=== PATIENT | female | born 1935 | race Caucasian/White ===

== ENCOUNTER 2021-04-04 10:53 | Outpatient (REF) | payer MEDICARE, SELFPAY ==
[2021-04-04 11:36] LABS: Alanine Aminotransferase 22 U/L (0-31); Albumin Level 4.1 g/dL (3.5-5.0); Alkaline Phosphatase 75 U/L (39-117); Aspartate Amino Transferase 26 U/L (5-31); Bilirubin Direct 0.2 mg/dL (0.0-0.5); Bilirubin Total 0.6 mg/dL (0.0-1.0); Cholesterol 155 mg/dL; HDL Cholesterol 78 mg/dL; LDL Cholesterol Calculated 69 mg/dl; Total Protein 6.5 g/dL (6.5-8.0); Triglycerides 41 mg/dL
== END 2021-04-04 10:54 | disposition home or self-care (01) ==
LOC: HO.LNP 10:53
PROVIDERS: Visit Provider Internal Medicine
DX: I70.90 Unspecified atherosclerosis (principal)
CPT/HCPCS: 80061; 80076

== ENCOUNTER 2021-05-28 10:33 | Outpatient (REF) | payer MEDICARE, SELFPAY ==
[2021-05-28 10:51] LABS: MANUAL DIFF FLAG NO
[2021-05-28 11:15] LABS: Basophils Percent Auto 0.6 % (0-2); Eosinophils Absolute Auto 0.5 X10*3/uL (0.0-0.4); Eosinophils Percent Auto 8.9 % (0-4); Hematocrit 40.3 % (37-47); Imm Gran Abs Auto 0.01 X10*3/uL (0.00-0.03); Imm Gran Pct Auto 0.2 % (0.0-0.4); Lymphocytes Absolute Auto 1.8 X10*3/uL (1.2-4.9); Lymphocytes Percent Auto 35.4 % (20-40); Mean Corpuscular HGB Conc 32.3 g/dl (31.0-35.0); Mean Corpuscular Volume 102.3 fL (80-98); Mean Platelet Volume 11.3 fL (9.4-12.3); Monocytes Absolute Auto 0.5 X10*3/uL (0.1-1.2); Monocytes Percent Auto 8.7 % (2-11); Neutrophils Absolute Auto 2.4 X10*3/uL (2.0-8.3); Neutrophils Percent Auto 46.2 % (45-73); Platelet Count 228 X10*3/uL (160-400); Red Blood Count 3.94 X10*6/uL (4.20-5.50); Red Cell Distribution Width 13.2 % (11.0-16.0); White Blood Count 5.2 X10*3/uL (4.8-10.8)
[2021-05-28 11:20] LABS: Glucose Urine UA NEG (NEG); Leukocyte Esterase Urine 1+ (NEG); Nitrite Urine NEG (NEG); PH 7.5 (5.0-8.0); Urine Blood NEG (NEG); Urine Ketones NEG (NEG); Urine Protein NEG (NEG-TRACE)
[2021-05-28 11:22] LABS: Appearance Urine CLEAR; Color Urine YELLOW
[2021-05-28 11:26] LABS: Estimated Average Glucose 105 mg/dL; Hemoglobin A1c % 5.3 %
[2021-05-28 11:29] LABS: RBC Urine 0 /HPF (0); Renal Epithelial Cells Urine TRACE /LPF; Squamous Epithelial Cell Urine TRACE /LPF
[2021-05-28 11:55] LABS: Alanine Aminotransferase 13 U/L (0-31); Albumin Level 3.9 g/dL (3.5-5.0); Alkaline Phosphatase 79 U/L (39-117); Anion Gap 12 (12-20); Aspartate Amino Transferase 20 U/L (5-31); Bilirubin Total 0.4 mg/dL (0.0-1.0); Blood Urea Nitrogen 11 mg/dL (9-16); Calcium 9.2 mg/dL (8.4-10.2); Carbon Dioxide 29 mmol/L (22-29); Chloride 110 mmol/L (96-108); Cholesterol 146 mg/dL; Estimated Glomerular Filt Rate > 60; Glucose Fasting 87 mg/dL (60-99); HDL Cholesterol 62 mg/dL; LDL Cholesterol Calculated 75 mg/dl; Potassium 4.3 mmol/L (3.3-5.1); Sodium 147 mmol/L (135-145); Total Protein 6.4 g/dL (6.5-8.0); Triglycerides 46 mg/dL
[2021-05-28 12:00] LABS: Reflex LDLD? No
[2021-05-28 12:17] LABS: Vitamin D 25-OH Total 43.4 ng/mL (>30)
[2021-05-28 12:36] LABS: Creatinine Urine 51.68 mg/dL; Microalbum/Creatinine Ratio Ur 11.6 ug/mg cr
== END 2021-05-28 10:34 | disposition home or self-care (01) ==
LOC: HO.LNP 10:33
PROVIDERS: PCP Internal Medicine; Visit Provider Internal Medicine
DX: R73.03 Prediabetes (principal); I10 Essential (primary) hypertension; I70.90 Unspecified atherosclerosis; M81.0 Age-related osteoporosis without current pathological fracture; D72.820 Lymphocytosis (symptomatic)
CPT/HCPCS: 80053; 80061; 81001; 81003; 82043; 82306; 83036; 85025

== ENCOUNTER 2021-11-25 10:18 | Outpatient (REF) | payer MEDICARE, SELFPAY ==
[2021-11-25 10:48] LABS: Appearance Urine CLEAR; Color Urine YELLOW; Glucose Urine UA NEG (NEG); Leukocyte Esterase Urine 1+ (NEG); Nitrite Urine NEG (NEG); Urine Blood NEG (NEG); Urine Ketones NEG (NEG); Urine Protein NEG (NEG-TRACE)
[2021-11-25 10:52] LABS: Alanine Aminotransferase 16 U/L (0-31); Albumin Level 3.9 g/dL (3.5-5.0); Alkaline Phosphatase 74 U/L (39-117); Aspartate Amino Transferase 19 U/L (5-31); Bilirubin Direct 0.2 mg/dL (0.0-0.5); Bilirubin Total 0.6 mg/dL (0.0-1.0); Cholesterol 173 mg/dL; HDL Cholesterol 66 mg/dL; LDL Cholesterol Calculated 92 mg/dl; Total Protein 6.6 g/dL (6.5-8.0); Triglycerides 79 mg/dL
[2021-11-25 11:01] LABS: Reflex LDLD? No
[2021-11-25 11:07] LABS: Squamous Epithelial Cell Urine TRACE /LPF
[2021-11-25 11:08] LABS: Bacteria Urine TRACE /LPF; RBC Urine 0-2 /HPF (0); Renal Epithelial Cells Urine TRACE /LPF
[2021-11-25 11:29] LABS: Creatinine Urine 71.61 mg/dL; Microalbum/Creatinine Ratio Ur 16.7 ug/mg cr
== END 2021-11-25 10:19 | disposition home or self-care (01) ==
LOC: HO.LNP 10:18
PROVIDERS: Visit Provider Internal Medicine
DX: N39.0 Urinary tract infection, site not specified (principal); I70.90 Unspecified atherosclerosis; R73.03 Prediabetes
CPT/HCPCS: 80061; 80076; 81001; 82043; 87086; 87088; 87186

== ENCOUNTER 2022-06-03 12:17 | Outpatient (REF) | payer MEDICARE, SELFPAY ==
[2022-06-03 12:22] LABS: MANUAL DIFF FLAG NO
[2022-06-03 12:26] LABS: Basophils Percent Auto 0.6 % (0-2); Eosinophils Absolute Auto 0.3 X10*3/uL (0.0-0.4); Eosinophils Percent Auto 6.4 % (0-4); Hematocrit 40.8 % (37.0-47.0); Hemoglobin 13.4 g/dl (12.0-16.0); Imm Gran Abs Auto 0.01 X10*3/uL (0.00-0.03); Imm Gran Pct Auto 0.2 % (0.0-0.4); Lymphocytes Absolute Auto 2.1 X10*3/uL (1.2-4.9); Lymphocytes Percent Auto 41.9 % (20-40); Mean Corpuscular HGB Conc 32.8 g/dl (31.0-35.0); Mean Corpuscular Hemoglobin 33.3 pg (27.0-33.0); Mean Corpuscular Volume 101.5 fL (80.0-98.0); Mean Platelet Volume 11.7 fL (9.4-12.3); Monocytes Absolute Auto 0.5 X10*3/uL (0.1-1.2); Monocytes Percent Auto 9.6 % (2-11); Neutrophils Absolute Auto 2.1 x10*3/uL (2.0-8.3); Neutrophils Percent Auto 41.3 % (45-73); Platelet Count 214 X10*3/uL (160-400); Red Blood Count 4.02 X10*6/uL (4.20-5.50); Red Cell Distribution Width 13.2 % (11.0-16.0)
[2022-06-03 12:35] LABS: Appearance Urine CLEAR; Color Urine YELLOW; Glucose Urine UA NEG (NEG); Leukocyte Esterase Urine TRACE (NEG); Nitrite Urine NEG (NEG); Specific Gravity - Urine 1.015 (1.005-1.025); Urine Blood TRACE (NEG); Urine Ketones NEG (NEG); Urine Protein NEG (NEG-TRACE)
[2022-06-03 12:53] LABS: RBC Urine 0-2 /HPF (0); WBC Urine 0 /HPF (0-4)
[2022-06-03 12:54] LABS: Alanine Aminotransferase 18 U/L (0-31); Albumin Level 4.1 g/dL (3.5-5.0); Alkaline Phosphatase 73 U/L (39-117); Anion Gap 12 (12-20); Aspartate Amino Transferase 23 U/L (5-31); Bilirubin Total 0.5 mg/dL (0.0-1.0); Blood Urea Nitrogen 13 mg/dL (9-16); Calcium 9.4 mg/dL (8.4-10.2); Carbon Dioxide 27 mmol/L (22-29); Chloride 109 mmol/L (96-108); Cholesterol 162 mg/dL; Estimated Glomerular Filt Rate > 60; Glucose Fasting 97 mg/dL (60-99); HDL Cholesterol 66 mg/dL; LDL Cholesterol Calculated 85 mg/dl; Potassium 4.6 mmol/L (3.3-5.1); Sodium 143 mmol/L (135-145); Total Protein 6.8 g/dL (6.5-8.0); Triglycerides 55 mg/dL
[2022-06-03 13:46] LABS: Estimated Average Glucose 105 mg/dL; Hemoglobin A1c % 5.3 %
[2022-06-03 14:09] LABS: Creatinine Urine 63.76 mg/dL; Microalbum/Creatinine Ratio Ur 12.5 ug/mg cr
== END 2022-06-03 12:18 | disposition home or self-care (01) ==
LOC: HO.LNP 12:17
PROVIDERS: PCP Internal Medicine; Visit Provider Internal Medicine
DX: R73.03 Prediabetes (principal); M35.3 Polymyalgia rheumatica; I10 Essential (primary) hypertension; D72.820 Lymphocytosis (symptomatic); I70.90 Unspecified atherosclerosis
CPT/HCPCS: 80053; 80061; 81001; 82043; 83036; 85025

== ENCOUNTER 2022-12-12 10:25 | Outpatient (REF) | payer MEDICARE, SELFPAY ==
[2022-12-12 11:11] LABS: Estimated Average Glucose 108 mg/dL; Hemoglobin A1c % 5.4 %
[2022-12-12 11:48] LABS: Alanine Aminotransferase 14 U/L (0-31); Alkaline Phosphatase 75 U/L (39-117); Aspartate Amino Transferase 21 U/L (5-31); Bilirubin Direct 0.2 mg/dL (0.0-0.5); Bilirubin Total 0.6 mg/dL (0.0-1.0); Cholesterol 148 mg/dL; Glucose Fasting 97 mg/dL (60-99); HDL Cholesterol 62 mg/dL; LDL Cholesterol Calculated 73 mg/dl; Total Protein 6.5 g/dL (6.5-8.0); Triglycerides 66 mg/dL
[2022-12-12 13:26] LABS: Reflex LDLD? No
== END 2022-12-12 10:26 | disposition home or self-care (01) ==
LOC: HO.LNP 10:25
PROVIDERS: PCP Internal Medicine; Visit Provider Internal Medicine
DX: R73.03 Prediabetes (principal); I70.90 Unspecified atherosclerosis
CPT/HCPCS: 80061; 80076; 82947; 83036

== ENCOUNTER 2022-12-22 11:48 | Outpatient (REF) | payer MEDICARE, SELFPAY ==
[2022-12-22 14:37] VITALS: BMI 24.2
[2022-12-22 14:39] VITALS: BP 141/89; PULSE 67; RESP 16; TEMP 37.1; O2SAT 96
== END 2022-12-22 11:49 | disposition home or self-care (01) ==
LOC: HO.MS 11:48
PROVIDERS: PCP Internal Medicine; Visit Provider Ophthalmology
PROC: (CPT 66821; principal; 2022-12-22 13:20)
DX: H26.492 Other secondary cataract, left eye (principal)
CPT/HCPCS: 66821

== ENCOUNTER 2023-01-12 13:41 | Outpatient (REF) | payer MEDICARE, SELFPAY ==
[2023-01-12 14:05] VITALS: BMI 24.7
[2023-01-12 14:11] VITALS: BP 171/79; PULSE 68; RESP 16; TEMP 37.1; O2SAT 97
== END 2023-01-12 13:42 | disposition home or self-care (01) ==
LOC: HO.MS 13:41
PROVIDERS: PCP Internal Medicine; Visit Provider Ophthalmology
PROC: (CPT 66821; principal; 2023-01-12 15:40)
DX: H26.491 Other secondary cataract, right eye (principal)
CPT/HCPCS: 66821

== ENCOUNTER 2023-06-01 11:11 | Outpatient (REF) | payer MEDICARE, SELFPAY | END 2023-06-01 11:12 | disposition home or self-care (01) | LOC: HO.LNP 11:11 | PROVIDERS: Visit Provider Internal Medicine | DX: R73.03 Prediabetes (principal); I10 Essential (primary) hypertension; D72.820 Lymphocytosis (symptomatic); E78.00 Pure hypercholesterolemia, unspecified | CPT/HCPCS: 80053; 80061; 81001; 82043; 83036; 85025 ==

== ENCOUNTER 2024-01-07 11:06 | Outpatient (REF) | payer MEDICARE, SELFPAY ==
[2024-01-07 11:09] LABS: MANUAL DIFF FLAG NO
[2024-01-07 11:35] LABS: Basophils Percent Auto 0.6 % (0-2); Eosinophils Absolute Auto 0.2 X10*3/uL (0.0-0.4); Eosinophils Percent Auto 4.4 % (0-4); Hematocrit 42.8 % (37.0-47.0); Imm Gran Abs Auto 0.02 X10*3/uL (0.00-0.03); Imm Gran Pct Auto 0.4 % (0.0-0.4); Lymphocytes Absolute Auto 2.2 X10*3/uL (1.2-4.9); Lymphocytes Percent Auto 42.2 % (20-40); Mean Corpuscular HGB Conc 32.7 g/dl (31.0-35.0); Mean Corpuscular Hemoglobin 33.6 pg (27.0-33.0); Mean Corpuscular Volume 102.6 fL (80.0-98.0); Mean Platelet Volume 11.6 fL (9.4-12.3); Monocytes Absolute Auto 0.5 X10*3/uL (0.1-1.2); Monocytes Percent Auto 9.2 % (2-11); Neutrophils Absolute Auto 2.2 x10*3/uL (2.0-8.3); Neutrophils Percent Auto 43.2 % (45-73); Platelet Count 230 X10*3/uL (160-400); Red Blood Count 4.17 X10*6/uL (4.20-5.50); Red Cell Distribution Width 13.4 % (11.0-16.0); White Blood Count 5.2 X10*3/uL (4.8-10.8)
[2024-01-07 11:51] LABS: Alanine Aminotransferase 19 U/L (0-31); Alkaline Phosphatase 64 U/L (39-117); Anion Gap 12 (12-20); Appearance Urine Cloudy; Aspartate Amino Transferase 24 U/L (5-31); Bilirubin Total 0.5 mg/dL (0.0-1.0); Blood Urea Nitrogen 13 mg/dL (9-16); Calcium 9.7 mg/dL (8.4-10.2); Carbon Dioxide 29 mmol/L (22-29); Chloride 105 mmol/L (96-108); Cholesterol 146 mg/dL (<200); Color Urine Yellow; Estimated Glomerular Filt Rate > 60; Glucose Fasting 99 mg/dL (60-99); Glucose Urine UA Negative (Negative); HDL Cholesterol 65 mg/dL (>40); LDL Cholesterol Calculated 71 mg/dL (<100); Leukocyte Esterase Urine Small (1+) (Negative); Nitrite Urine Positive (Negative); Sodium 142 mmol/L (135-145); Triglycerides 51 mg/dL (<150); UMIC TRIGGER UACC YES; Urine Blood Negative (Negative); Urine Ketones Negative (Negative); Urine Protein Negative (Neg-Trace)
[2024-01-07 12:10] LABS: Bacteria Urine 4+ (None Seen); Hyaline Casts Urine 0-2 /LPF (0-2); RBC Urine 0-2 /HPF (0-2); Squamous Epithelial Cell Urine 0-2 /HPF (0-2); UACC Culture Trigger YES; WBC Urine 0-5 /HPF (0-5)
== END 2024-01-07 11:07 | disposition home or self-care (01) ==
LOC: HO.LNP 11:06
PROVIDERS: Visit Provider Internal Medicine
DX: R73.03 Prediabetes (principal); I10 Essential (primary) hypertension; D72.820 Lymphocytosis (symptomatic); E78.00 Pure hypercholesterolemia, unspecified
CPT/HCPCS: 80053; 80061; 81001; 85025; 87086; 87088; 87186

== ENCOUNTER 2024-06-16 10:56 | Outpatient (REF) | payer MEDICARE, SELFPAY ==
[2024-06-16 10:59] LABS: MANUAL DIFF FLAG NO
[2024-06-16 11:10] LABS: Appearance Urine Cloudy; Basophils Percent Auto 0.4 % (0-2); Color Urine Yellow; Eosinophils Absolute Auto 0.3 X10*3/uL (0.0-0.4); Eosinophils Percent Auto 5.6 % (0-4); Glucose Urine UA Negative (Negative); Hematocrit 40.1 % (37.0-47.0); Hemoglobin 13.2 g/dl (12.0-16.0); Imm Gran Abs Auto 0.01 X10*3/uL (0.00-0.03); Imm Gran Pct Auto 0.2 % (0.0-0.4); Leukocyte Esterase Urine Small (1+) (Negative); Lymphocytes Absolute Auto 1.9 X10*3/uL (1.2-4.9); Lymphocytes Percent Auto 40.5 % (20-40); Mean Corpuscular HGB Conc 32.9 g/dl (31.0-35.0); Mean Corpuscular Hemoglobin 33.8 pg (27.0-33.0); Mean Corpuscular Volume 102.6 fL (80.0-98.0); Mean Platelet Volume 11.7 fL (9.4-12.3); Monocytes Absolute Auto 0.4 X10*3/uL (0.1-1.2); Monocytes Percent Auto 8.6 % (2-11); Neutrophils Absolute Auto 2.1 x10*3/uL (2.0-8.3); Neutrophils Percent Auto 44.7 % (45-73); Nitrite Urine Positive (Negative); Platelet Count 198 X10*3/uL (160-400); Red Blood Count 3.91 X10*6/uL (4.20-5.50); Red Cell Distribution Width 13.3 % (11.0-16.0); Specific Gravity - Urine 1.015 (1.005-1.025); UMIC TRIGGER UACC YES; Urine Blood Negative (Negative); Urine Ketones Negative (Negative); Urine Protein Negative (Neg-Trace); White Blood Count 4.7 X10*3/uL (4.8-10.8)
[2024-06-16 11:20] LABS: Estimated Average Glucose 105 mg/dL; Hemoglobin A1c % 5.3 % (<6.0)
[2024-06-16 11:22] LABS: Alanine Aminotransferase 19 U/L (0-31); Albumin Level 3.9 g/dL (3.5-5.0); Alkaline Phosphatase 65 U/L (39-117); Anion Gap 12 (12-20); Aspartate Amino Transferase 23 U/L (5-31); Bilirubin Total 0.5 mg/dL (0.0-1.0); Blood Urea Nitrogen 14 mg/dL (9-16); Calcium 9.5 mg/dL (8.4-10.2); Carbon Dioxide 28 mmol/L (22-29); Chloride 108 mmol/L (96-108); Cholesterol 145 mg/dL (<200); Estimated Glomerular Filt Rate > 60; Glucose Fasting 102 mg/dL (60-99); HDL Cholesterol 63 mg/dL (>40); LDL Cholesterol Calculated 72 mg/dL (<100); Potassium 4.1 mmol/L (3.3-5.1); Sodium 144 mmol/L (135-145); Total Protein 6.7 g/dL (6.5-8.0); Triglycerides 52 mg/dL (<150)
[2024-06-16 11:25] LABS: Bacteria Urine 4+ (None Seen); Hyaline Casts Urine 0-2 /LPF (0-2); RBC Urine 0-2 /HPF (0-2); Squamous Epithelial Cell Urine 0-2 /HPF (0-2); UACC Culture Trigger YES; WBC Urine 0-5 /HPF (0-5)
[2024-06-16 11:29] LABS: Microalbum/Creatinine Ratio Ur 7.6 ug/mg cr (<30)
== END 2024-06-16 10:57 | disposition home or self-care (01) ==
LOC: HO.LNP 10:56
PROVIDERS: Visit Provider Internal Medicine
DX: R73.09 Other abnormal glucose (principal); I10 Essential (primary) hypertension; D72.820 Lymphocytosis (symptomatic); E78.00 Pure hypercholesterolemia, unspecified
CPT/HCPCS: 80053; 80061; 81001; 82043; 82570; 83036; 85025; 87086; 87088; 87186

== ENCOUNTER 2024-12-22 08:45 | Outpatient (REF) | payer MEDICARE, SELFPAY ==
[2024-12-22 11:50] LABS: Estimated Average Glucose 111 mg/dL; Hemoglobin A1C 129.4757 umol/L; Hemoglobin A1c % 5.5 % (<6.0); Total Hemoglobin (HGBA1C) 3568.0483 umol/L
[2024-12-22 11:55] LABS: Alanine Aminotransferase 28 U/L (0-31); Albumin Level 3.9 g/dL (3.5-5.0); Alkaline Phosphatase 66 U/L (39-117); Aspartate Amino Transferase 31 U/L (5-31); Bilirubin Direct 0.2 mg/dL (0.0-0.5); Bilirubin Total 0.6 mg/dL (0.0-1.0); Cholesterol 147 mg/dL (<200); Glucose Fasting 94 mg/dL (60-99); HDL Cholesterol 71 mg/dL (>40); LDL Cholesterol Calculated 65 mg/dL (<100); Total Protein 7.2 g/dL (6.5-8.0); Triglycerides 56 mg/dL (<150)
[2024-12-22 11:56] LABS: Reflex LDLD? No
--- OUTSIDE RECORDS SUMMARY | 2024-12-22 13:34 | XMS_ITS | Data Portability ---
Author Organization [place] - [facility], Allergy Address [address] [place] [phone] Care Team Providers Care Principal Systems Architect Name Role Phone ADRIAN SAEZ Primary Care Provider Assessment Encounter Date Assessment Date Assessment LastModified by Organization Details LastModified Time 10/05/2024 10/05/2024 89 year old female presents to the office for ear cleaning. Ears were meticulously cleaned bilaterally today with fine pics. Patient is encouraged to avoid Q-tips in her ears relative to packing the wax in tighter. Yearly visits or as needed are recommended. [email or web address] Not available 10/05/2024 10:35:18 Plan of Treatment Reminders Order Date Submit Date Provider Last Modified By Organization Details Last Modified Time Details Appointments Establish ed 15 2024 10:30A M ZAFAR VERA PA-C Not available Not available Not available Lab None recorded. Referral None recorded. Procedures None recorded. Surgeries None recorded. Imaging None recorded. Medication Orders None recorded. Patient TargetsNo targets recorded. Patient InstructionsNo instructions recorded. Reason for Referral None Reported. Problems Name Problem SNOMED Code Status Onset Date Resolution Date Notes Provider Name and Address Organization Details Recorded Time Cough 63076964 Active 2015 Cough; Note: Date Diagnosed : 03/24/2016 10:47 AM (R05) Not Available [facility] 4 02:46:14 Allergic rhinitis 26325079 Active 2015 Perennial allergic rhinitis; Note: Date Diagnosed : 03/24/2016 11:42 AM (J30.89) Not Available [facility] 4 02:46:12 Impacted cerumen 11548102 Active 2013 Impacted cerumen; CMS Risk: low risk CMS Treatment : new problem (to examiner) : no additiona l workup planned Not Available [facility] 4 02:46:09 Pain of right temporoma ndibular joint 43861930175 180269 Active 2016 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 Procedures Surgical History Date Name Laterality Status Provider Name and Address Organization Details Recorded Time 4 Cerumen removal without microscope bilat completed TIMBO ROSENBERG PA-C [address] [place] [address], [phone], [facility] - [facility] 10/05/2024 10:35:35 Imaging Results None recorded. Procedure Notes None recorded. Medical Equipment None Reported. Allergies Allergen ID Allergen Name Allergen Category Reaction Reaction Severity Criticality Documentation Date Start Date Code Code System Note Provider Name and Address Organization Details Recorded Time 09584 Substance with sulfonami de structure and antibacte rial mechanism of action (substanc e) medicatio n other Not available Not available 04/12/2024 99506 8003 SNOMED React ion: unkno wn, unspe cifie d;; Not Available [facility] 4 01:01:47 Medications Name Sig Start Date Stop Date Status Note LastModified by Organization Details LastModified Time paroxetin e 10 mg tablet TAKE 1 TABLET BY MOUTH EVERY DAY IN THE MORNING active Not Available Not Available No t Available atorvasta tin 20 mg tablet TAKE 1 TABLET BY MOUTH EVERY DAY active Not Available Not Available No t Available ketoconaz ole 2 % shampoo 10/05 completed Medicati on ID: [id number] B rand Name: ketocona zole Richard d Method: E-Prescr ibed Sub s Allowed: subs OK Medic ationGen ericName : ketocona zole Not Available Not Available Not Available valacyclo vir 1 gram tablet TAKE 2 TABLETS BY MOUTH 2 TIMES DAILY X1 DAY 10/05 completed Not Available Not Available Not Available levofloxa nichole 250 mg tablet TAKE 1 TABLET BY MOUTH EVERY DAY FOR 7 DAYS 10/05 completed Not Available Not Available Not Available amlodipin e 5 mg tablet TAKE 1 TABLET BY MOUTH EVERY DAY DIRECTED active Not Available Not Available No t Available peg-elect rolyte solution 420 gram oral solution 03/24 completed Medicati on ID: [id number] Du ration Value: 1 Reason: () Brand Name: peg-elec trolyte soln Sen d Method: E-Prescr ibed Sub s Allowed: subs OK Speci al Instruct ion: DIRECTED DIRECTED ORALLY 1 DAY(S) Shira Haddadic Name: peg-elec trolyte soln Not Available Not Available Not Available losartan 100 mg-hydroc hlorothia zide 25 mg tablet 01/01 completed Medicati on ID: [id number] Du ration Value: 90 Brand Name: losartan -hydroch lorothia zide Sen d Method: E-Prescr ibed Sub s Allowed: subs OK Speci al Instruct ion: TAKE 1 TABLET BY MOUTH EVERY DAY Medi cationGe nericNam e: losartan -hydroch lorothia zide Not Available Not Available Not Available imiquimod 5 % topical cream packet APPLY TO AREA AT BEDTIME THURSDAY- RID FOR 3 WEEKS (12 EVERY PER INSURANC E) 10/05 completed Not Available Not Available Not Available cephalexi n 500 mg capsule TAKE 1 CAPSULE BY MOUTH TWICE A DAY FOR 5 DAYS 10/05 completed Not Available Not Available Not Available Ventolin HFA 90 mcg/actua tion aerosol inhaler 01/01 completed Medicati on ID: [id number] D uration Value: 30 Brand Name: Ventolin HFA Send Method: E-Prescr ibed Sub s Allowed: subs OK Medic ationGen ericName : Ventolin HFA Not Available Not Available Not Available Calcium 500 + D 500 mg-5 mcg (200 unit) tablet 01/01 completed Medicati on ID: [id number] B rand Name: Calcium 500 + D Send Method: E-Prescr ibed Sub s Allowed: subs OK Medic ationGen ericName : Calcium 500 + D Not Available Not Available Not Available Breo Ellipta 200 mcg-25 mcg/dose powder for inhalatio n 10/05 completed Medicati on ID: [id number] B rand Name: Eva Ladd Send Method: E-Prescr ibed Sub s Allowed: subs OK Medic ationGen ericName : Eva Ladd Not Available Not Available Not Available Vitals Date Recorded Body height Body mass index (BMI) Body weight Provider Name and Address Organization Details Last Updated DateTime 10/05/2024 160.02 cm 24.7 kg/m2 11538.14 g Chitra Sharma [place] - [facility] 10/05/2024 10:25:52 Social History None recorded. Functional Status None recorded. Mental Status None recorded. Family History Nothing Reported. Medical History No medical history recorded. Gynecological HistoryNo gynecological history recorded. Obstetrics History GPAL:G 0 P 0 0 0 0 Past Encounters Encounter ID Performer Location Encounter Start Date Encounter Closed Date Diagnosis/Indication Diagnosis SNOMED-CT Code Diagnosis ICD10 Code Diagnosis Note [id number] BRENDEN BOWENS MD [facility] [address] [address] 10/05/2024 10:20:00 10/05/2024 10:35:33 Impacted cerumen of bilateral ears [id number] 735768 H61.23 Health Concerns Section Related Observation LastModified by Organization Detai ls LastModified Time None Recorded Concern Status LastModified by Organization Details LastModified Time None Recorded Advance Directives Directive None Recorded Payers Encounter Date Sequence Insurance Name Policy Number Policy Orozco Covered Member ID Orozco Member ID Guarantor Name 10/05/2024 1 [place] Marlyn Meyer [id number] Marlyn Meyer 10/05/2024 2 [place] [id number] Marlyn Meyer [id number] Marlyn Meyer Notes Date Note Type Note Provider Name and Address Organization Details Recorded Time 10/05/2024 text/html 89 year old female presents to the office for ear cleaning. She has been using bilateral hearing aids for the past six months. She denies otalgia or ottorhea. BRENDEN BARRETO MD [address] [place] [address], [phone], [facility] - [facility] 10/05/2024 12:34:58 OBGyn Episode No OBEpisode recorded.
== END 2024-12-22 08:46 | disposition home or self-care (01) ==
LOC: HO.LNP 08:45
PROVIDERS: Visit Provider Internal Medicine
DX: R73.09 Other abnormal glucose (principal); E78.00 Pure hypercholesterolemia, unspecified
CPT/HCPCS: 80061; 80076; 82947; 83036

== ENCOUNTER 2025-06-23 09:55 | Outpatient (REF) | payer MEDICARE, SELFPAY ==
--- OUTSIDE RECORDS SUMMARY | 2025-06-23 04:15 | XMS_ITS ---
Author Organization Elias Donovan MD Address [address] [place], [place] [phone] Care Team Providers Care User Experience Architect Name Role Phone Elias Donovan Primary Care Provider Results Component Value Reference Range Notes Complete Blood Count Auto Di ff (Not yet reviewed by provider) Interpretation: Performing Lab:[facility], [address] [place] [phone] Notes/Report: White Blood Count 4.7 4.8-10.8 X10*3/uL Red Blood Count 3.85 4.20-5.50 X10*6/uL Hemoglobin 13.0 12.0-16.0 g/dl Hematocrit 39.2 37.0-47.0 % Mean Corpuscular Volume 101.8 80.0-98.0 fL Mean Corpuscular Hemoglobin 33.8 27.0-33.0 pg Mean Corpuscular HGB Conc 33.2 31.0-35.0 g/dl Red Cell Distribution Width 13.3 11.0-16.0 % Platelet Count 200 160-400 X10*3/uL Mean Platelet Volume 11.7 9.4-12.3 fL Neutrophils Percent Auto 40.0 45-73 % Imm Gran Pct Auto 0.2 0.0-0.4 % Lymphocytes Percent Auto 44.3 20-40 % Monocytes Percent Auto 10.3 2-11 % Eosinophils Percent Auto 4.6 0-4 % Basophils Percent Auto 0.6 0-2 % NRBC Pct Auto 0.0 0.0-0.2 /100WBC Neutrophils Absolute Auto 1.9 2.0-8.3 x10*3/u L Imm Gran Abs Auto 0.01 0.00-0.03 X10*3/uL Lymphocytes Absolute Auto 2.1 1.2-4.9 X10*3/u L Monocytes Absolute Auto 0.5 0.1-1.2 X10*3/uL Eosinophils Absolute Auto 0.2 0.0-0.4 X10*3/u L Basophils Absolute Auto 0.0 0.0-0.2 X10*3/uL NRBC Abs Auto 0.000 0.0-0.012 X10*3/uL REASON FOR VISIT FASTING LABS Encounters Encounter Location Date Provider Diagnosis Elias Donovan MD [address] [place] [address] [address] [place], [place] [phone] 06/23/2025 Elias Donovan Prediabetes R73.09 ; Essential (primary) hypertension I10 ; Lymphocytosis D72.820 and Hypercholesterolemia E78.00 Assessments Encounter Date Diagnosis (ICD Code) Assessment Notes Treatment Notes Treatment Clinical Notes Section Notes 06/23/2025 Prediabetes (ICD-10 - R73.09) 06/23/2025 Essential (primary) hypertension (ICD-10 - I10) 06/23/2025 Lymphocytosis (ICD-1 0 - D72.820) 06/23/2025 Hypercholesterolemia (ICD-10 - E78.00) Plan Of Treatment Pending Test Test Name Order Date Complete Blood Count Auto Diff Comprehensive [place]. Panel Fast Lipid Panel 06/23/2025 Microalbumin, Random 06/23/2025 Hemoglobin A1c 06/23/2025 UA ClnCatch+Micro w/rflx Cult 06/23/2025 Next Appt Details Provider Name:Elias Otto ier, 07/11/2025 02:30:00 PM, [address] [place] [address], [address], [place], [place], [phone], Progress Notes * Tian AVILESOB:1935 (89 yo F)Acc No.[id number]:06/23/2025 Progress Note Patient: Marlyn YANG Provider: Ofe Donovan MD :1935 A ge:89 Y S ex:Female Date:06/23/2025 Address:[address] [place], [place] [id number] Subjective: * Chief Complaints: * 1 . FASTING LABS. * Medical History: Objective: * Vitals: Assessment: * Assessment: 1. P rediabetes - R73.09 (Primary) 2 . E ssential (primary) hypertension - I10 3 . L ymphocytosis - D72.820 4 . H ypercholesterolemia - E78.00 Plan: * Treatment: 2. E ssential (primary) hypertension L AB: Complete Blood Count Auto Diff (Collection Date & Time - 06/23/2025 08:15 AM) L AB: Comprehensive [place]. Panel Fast L AB: Lipid Panel L AB: Microalbumin, Random L AB: Hemoglobin A1c L AB: UA ClnCatch+Micro w/rflx Cult 3. L ymphocytosis L AB: Complete Blood Count Auto Diff (Collection Date & Time - 06/23/2025 08:15 AM) L AB: Comprehensive [place]. Panel Fast L AB: Lipid Panel L AB: Microalbumin, Random L AB: Hemoglobin A1c L AB: UA ClnCatch+Micro w/rflx Cult 4. H ypercholesterolemia L AB: Complete Blood Count Auto Diff (Collection Date & Time - 06/23/2025 08:15 AM) L AB: Comprehensive [place]. Panel Fast L AB: Lipid Panel L AB: Microalbumin, Random L AB: Hemoglobin A1c L AB: UA ClnCatch+Micro w/rflx Cult * Procedure Codes: 3 6415 VENIPUNCT, ROUTINE* * * The named appointment provid er may or may not be the originator of this progress note, and it is not deemed complete until electronically signed by the appointment provider. Sign off status: Pending * Provider: Ofe Donovan MD Date: 0 06/23/2025 Generated for Slava stinson/Neeru/Silverio on: 0 06/23/2025 10:10 AM EDT
[2025-06-23 09:59] LABS: MANUAL DIFF FLAG NO
[2025-06-23 10:04] LABS: Hematocrit 39.2 % (37.0-47.0); Hemoglobin 13.0 g/dl (12.0-16.0); Imm Gran Abs Auto 0.01 X10*3/uL (0.00-0.03); Imm Gran Pct Auto 0.2 % (0.0-0.4); Lymphocytes Absolute Auto 2.1 X10*3/uL (1.2-4.9); Mean Corpuscular HGB Conc 33.2 g/dl (31.0-35.0); Mean Corpuscular Hemoglobin 33.8 pg (27.0-33.0); Mean Corpuscular Volume 101.8 fL (80.0-98.0); NRBC Abs Auto 0.000 X10*3/uL (0.0-0.012); NRBC Pct Auto 0.0 /100WBC (0.0-0.2); Platelet Count 200 X10*3/uL (160-400); Red Blood Count 3.85 X10*6/uL (4.20-5.50); White Blood Count 4.7 X10*3/uL (4.8-10.8)
--- OUTSIDE RECORDS SUMMARY | 2025-06-23 10:11 | XMS_ITS | Patient Health Record ---
Author Organization [facility] Address [address] [place] [address] Care Team Providers Care Pharmacy Coordinator Name Role Phone Elias Donovan MD Primary Care Provider Yasmine Poole Unavailable [phone] Allergies Allergen (clinical drug ingredient) Drug/Non Drug Allergy documented on EMR Reaction Allergy Type Onset Date Status Substance with sulfonamide structure and antibacterial mechanism of action (substance) Sulfa Antibiotics Unknown Drug Allergy Active Reason For Referral No Information Medications Medication SIG (Take, Route, Frequency, Duration) Notes Start Date End Date Status PARoxetine HCl 10 MG TAKE 1 TABLET BY MO UT EVERY MORNING Oral; Duration: 90 Active amLODIPine Besylate 5 MG Oral; Duration: 90 Days Active Atorvastatin Calcium 20 MG Oral; Duration: 90 Days Active Social History Tobacco Use: Social History Observation Description Date Details (start date - stop date) Former Smoker NA - NA Tobacco Use/Smoking Question Answer Notes Are you a former smoker How long has it been since you last smoked? > 10 years Alcohol Screen (Audit-C) Question Answer Notes Did you have a drink contain ing alcohol in the past year? Yes How often did you have a dri nk containing alcohol in the past year? 2 to 4 times a month (2 points) How many drinks did you have on a typical day when you were drinking in the past year? 1 or 2 drinks (0 point) Points 2 Interpretation Negative Sexual History Question Answer Notes Had sex in the past 12 months (vaginal, oral, or anal)? No Section Notes: MARITAL STATUS: CHILDREN: 6 Children LIVES WITH: spouse OCCUPATION: retired NUTRITION: average diet EXERCISE: regular walking SEXUAL ACTIVITY: monogamous relationship. 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) Active confirmed Problem Benign essential hypertension (5651868) Essential hypertension, benign (401.1) Active confirmed Major Problem Urinary tract infectious disease (disorder) (02266529) Urinary tract infection, site not specified (599.0) Active confirmed Major Problem Menopausal symptom (18630623) Symptomatic menopausal or female climacteric states (627.2) Active confirmed Major Problem Postmenopausal atrophic vaginitis (08751836) Postmenopausal atrophic vaginitis (627.3) Active confirmed Major Problem Gynecological examination normal (718168177913230) Routine gynecological examination (V72.31) Active confirmed Major Problem Screening for malignant neoplasm of colon (417873220) Special screening for malignant neoplasms, colon (V76.51) Active confirmed Major Plan Of Treatment Pending Test Test Name Order Date MAMMOGRAM, SCREENING 02/10/2024 Bone Density 09/17/2015 BONE DENSITY 11/04/2018 BONE DENSITY 11/05/2020 MM Digital Mammo Screening 02/10/2024 Insurance Providers Payer Name Payer Address Payer Phone Subscriber Number Group Number Insured Name Patient Relationship to Insured Coverage Start Date Coverage End Date MEDICARE [address] KWAN ALMARAZ [id number] CRISTOFER AVILES Self - patient is the insured MEDEX [address] [place] [address] [phone] [id number] CRISTOFER AVILES Self - patient is the insured Medical (General) History Medical History History ICD Code Essential (primary) hypertension I10 Menopausal and female climacteric states N95.1 Urinary tract infection, site not specif ied N39.0 Postmenopausal atrophic vaginitis N95.2 Unspecified menopausal and perimenopausa l disorder N95.9 Surgical History Surgery Date(Month/Year) Colonoscopy Bilateral Cataract 2017 Hospitalization History Reason Date(Month/Year) 6 Vaginal Deliveries
--- OUTSIDE RECORDS SUMMARY | 2025-06-23 10:11 | XMS_ITS | Data Portability ---
Author Organization [place] - [facility], Allergy Address [address] [address] Care Team Providers Care Drawer Hardware Worker Name Role Phone ADRIAN SAEZ Primary Care Provider [phone] Assessment Encounter Date Assessment Date Assessment LastModified [...] Name and Address Organization Details Recorded Time Impacted cerumen 44889376 Active 2013 Impacted cerumen; CMS Risk: low risk CMS Treatment : new problem (to examiner) : no additiona l workup planned Not Available [facility] 4 02:46:09 Cough 82852000 Active 2015 Cough; Note: Date Diagnosed : 03/24/2016 10:47 AM (R05) Not Available [facility] 4 02:46:14 Allergic rhinitis 16634116 Active 2015 Perennial allergic rhinitis; Note: Date Diagnosed : 03/24/2016 11:42 AM (J30.89) Not Available [facility] 4 02:46:12 Impacted cerumen of bilateral ears 50224914543 94483 Active 2015 Impacted cerumen, bilateral ; Note: Date Diagnosed : 03/24/2016 10:48 AM (H61.23) Not Available [facility] 4 02:46:06 Pain of right temporoma ndibular joint 02960884079 105446 Active 2016 Arthralgi a of right temporoma ndibular joint; Note: Date Diagnosed : 07/28/2017 9:47 AM (M26.621) Not Available [facility] 4 02:46:07 Problem Notes None recorded. Procedures Surgical History Date Name Laterality Status Provider Name and Address Organization Details Recorded Time 4 Cerumen removal without microscope bilat completed TIMBO ROSENBERG PA-C [address] [place] [address], [phone], [facility] - [facility] 10/05/2024 10:35:35 Imaging Results None recorded. Procedure Notes None recorded. Medical Equipment None Reported. Allergies Allergen ID Allergen Name Allergen Category Reaction Reaction Severity Criticality Documentation Date Start Date Code Code System Note Provider Name and Address Organization Details Recorded Time 03966 Substance with sulfonami de structure and antibacte rial mechanism of action (substanc e) medicatio n other Not available Not available 04/12/2024 28356 8003 SNOMED React ion: unkno wn, unspe cifie d;; Not Available [facility] 4 01:01:47 Medications Name Sig Start Date [...] % shampoo 10/05 completed Medicati on ID: [id number] B rand Name: ketocona zole Sen d Method: E-Prescr ibed Sub s [...] oral solution 03/24 completed Medicati on ID: [id number] Du ration Value: 1 Reason: () Brand Name: peg-elec trolyte soln Sen d Method: E-Prescr ibed Sub s Allowed: subs OK Speci al Instruct ion: DIRECTED DIRECTED ORALLY 1 DAY(S) Shira Haddadic Name: peg-elec trolyte soln Not Available Not Available Not Available losartan 100 mg-hydroc hlorothia zide 25 mg tablet 01/01 completed Medicati on ID: [id number] Du ration Value: 90 Brand Name: losartan -hydroch lorothia zide Sen d Method: E-Prescr ibed Sub s Allowed: subs OK Speci al Instruct ion: TAKE 1 TABLET BY MOUTH EVERY DAY Medi cationGe nericNam e: losartan -hydroch lorothia zide Not Available Not Available Not Available imiquimod 5 % topical cream packet APPLY TO AREA AT BEDTIME THURSDAY- RID FOR 3 WEEKS (12 EVERY DAYS PER INSURANC E) 10/05 completed Not Available Not Available Not Available cephalexi n 500 mg capsule TAKE 1 CAPSULE BY MOUTH TWICE A DAY FOR 5 DAYS 10/05 completed Not Available Not Available Not Available Ventolin HFA 90 mcg/actua tion aerosol inhaler 01/01 completed Medicati on ID: [id number] D uration Value: 30 Brand Name: Ventolin HFA Send Method: E-Prescr ibed Sub s Allowed: subs OK Medic ationGen ericName : Ventolin HFA Not Available Not Available Not Available Calcium 500 + D 500 mg-5 mcg (200 unit) tablet 01/01 completed Medicati on ID: [id number] B rand Name: Calcium 500 + D Send Method: E-Prescr ibed Sub s Allowed: subs OK Medic ationGen ericName : Calcium 500 + D Not Available Not Available Not Available Eva Ladd 200 mcg-25 mcg/dose powder for inhalatio n 10/05 completed Medicati on ID: [id number] B rand Name: Eva Ladd Send Method: E-Prescr ibed Sub s Allowed: subs OK Medic ationGen ericName : Edwinao Ellipta Not Available Not Available Not Available Vitals Date Recorded Body height Body mass index (BMI) Body weight Provider Name and Address Organization Details Last Updated DateTime 10/05/2024 160.02 cm 24.7 kg/m2 16877.14 g Chitra Sharma [place] - [facility] 10/05/2024 10:25:52 Social History None recorded. Functional Status None recorded. Mental Status None recorded. Family History Nothing Reported. Medical History No medical history recorded. Gynecological HistoryNo gynecological history recorded. Obstetrics History GPAL:G 0 P 0 0 0 0 Past Encounters Encounter ID Performer Location Encounter Start Date Encounter Closed Date Diagnosis/Indication Diagnosis SNOMED-CT Code Diagnosis ICD10 Code Diagnosis Note [id number] TIMBO ROSENBERG PA-C [facility] [address] [address] 10/05/2024 10:20:00 10/05/2024 10:35:33 Impacted cerumen of bilateral ears [id number] 800851 H61.23 Health Concerns Section Related Observation LastModified by Organization Detai ls LastModified Time None Recorded Concern Status LastModified by Organization Details LastModified Time None Recorded Advance Directives Directive None Recorded Payers Insurance Date Sequence Insurance Name Policy Number Policy Orozco Covered Member ID Orozco Member ID Guarantor Name 10/05/2024 1 [place] Marlyn Meyer [id number] Marlyn Meyer 10/07/2024 2 [place] [id number] Marlyn Meyer [id number] Marlyn Meyer Notes Date Note Type Note Provider Name and Address Organization Details Recorded Time 10/05/2024 text/html ROS as noted in the HPI 89 year old female presents to the office for ear cleaning. She has been using bilateral hearing aids for the past six months. She denies otalgia or ottorhea. BRENDEN BARRETO MD [address] [place] [address], [phone], [facility] - [facility] 10/05/2024 12:34:58 OBGyn Episode No OBEpisode recorded.
--- OUTSIDE RECORDS SUMMARY | 2025-06-23 10:11 | XMS_ITS | Clinical Summary ---
Author Organization [facility] ity Address [address] [place] [address] Care Team Providers Care Oil Field Roustabout Name Role Phone Unavailable Primary Care Provider Unavailabl e Social History Tobacco Use Types Packs/Day Years Used Date Smoking Tobacco: Never Assessed Comments Unknown Sex and Gender Information Value Date Recorded Sex Assigned at Not on file Legal Sex Female 9:29 PM EST Gender Identity Not on file Sexual Orientation Not on file Plan of Treatment Health Maintenance Due Date Last Done Comments DTaP,Tdap,and Td Vaccines (1 - Tdap) 1954 Pneumococcal Vaccine: 50+ Ye ars (1 of 1 - PCV) 1986 Zoster Vaccines (1 of 2) 1986 RSV Immunization Adult Patie nts (1 - 1-dose 75+ series) 2011 COVID-19 Vaccine (1 - 2023-2 5 season) 2024 Depression Screening 11/30/2024 Influenza Vaccine (#1) 2025 HIB Vaccines Aged Out No longer eligi ble based on patient's age to complete this topic HPV Vaccines Aged Out No longer eligi ble based on patient's age to complete this topic Hepatitis A Vaccines Aged Out No long er eligible based on patient's age to complete this topic Hepatitis B Vaccines Aged Out No long er eligible based on patient's age to complete this topic IPV Vaccines Aged Out No longer eligi ble based on patient's age to complete this topic MMR Vaccines Aged Out No longer eligi ble based on patient's age to complete this topic Meningococcal ACWY Vaccine Aged Out N o longer eligible based on patient's age to complete this topic Meningococcal B Vaccine Aged Out No l onger eligible based on patient's age to complete this topic RSV Immunization Patients Un matteo 20 months Aged Out No longer eligible b ased on patient's age to complete this topic Varicella Vaccines Aged Out No longer eligible based on patient's age to complete this topic
--- OUTSIDE RECORDS SUMMARY | 2025-06-23 10:11 | XMS_ITS | Patient Health Record ---
Author Organization [facility] Address [address] [place] [address] Care Team Providers Care Manager Income Tax Name Role Phone Elias Donovan MD Primary Care Provider Nestor Clay Unavailable [phone] Allergies Allergen (clinical drug ingredient) Drug/Non Drug Allergy documented on EMR Reaction Allergy Type Onset Date Status Substance with sulfonamide structure and antibacterial mechanism of action (substance) Sulfa (uncoded) Unknown Allergy Active Reason For Referral No Information Medications Medication SIG (Take, Route, Frequency, Duration) Notes Start Date End Date Status Colyte w Flavor Packs 240 GM as directed Orally as directed for 1 day(s) 07/25/2014 Active Losartan Potassium-HCTZ 100-25 MG 1 tablet Orally Once a day A ctive PARoxetine HCl 10 MG/5ML 5 ml in the mor chiquis Orally Once a day Active Calcium + D 600-200 MG-UNIT 1 tablet with food Orally Once a day Active Problems Problem Type SNOMED Code ICD Code Onset Dates Problem Status W/U Status Risk Notes Problem Change in bowel habit (01341128) Change in bowel habits (787.99) Active confirmed Problem Colon cancer screening (600863424) Colon cancer screening (V76.51) Active confirmed Plan Of Treatment Future Test Test Name Order Date COLONOSCOPY 07/25/2014 Insurance Providers Payer Name Payer Address Payer Phone Subscriber Number Group Number Insured Name Patient Relationship to Insured Coverage Start Date Coverage End Date MEDICARE OF [place] [address] [place] [address] [id number] [employer] Self - patient is the insured [employer] ATT[employer] CLAIMS [address] [place] [address] [id number] [employer] [place] Self - patient is the insured Medical (General) History Medical History History ICD Code Colonoscopy 2002---negative; colonoscopy in 1992 neg except for hyperplastic polyps Osteoporosis Denies PA,DM,CVA,Lung disease,renal dise ase Anxiety HTN Sigmoid diverticulosis and i nternal hemorrhoids noted on her previous colonoscopies Surgical History Surgery Date(Month/Year) cyst removal breast and ovary appendectomy
[2025-06-23 10:13] LABS: Hemoglobin A1C 119.1131 umol/L; Total Hemoglobin (HGBA1C) 3391.4256 umol/L
[2025-06-23 10:27] LABS: Appearance Urine Hazy; Glucose Urine UA Negative (Negative); PH 6.5 (5.0-9.0); Specific Gravity - Urine 1.015 (1.005-1.025); UMIC TRIGGER UACC YES
[2025-06-23 10:43] LABS: Alanine Aminotransferase 21 U/L (0-31); Albumin Level 4.1 g/dL (3.5-5.0); Alkaline Phosphatase 68 U/L (39-117); Anion Gap 11 (12-20); Aspartate Amino Transferase 28 U/L (5-31); Blood Urea Nitrogen 13 mg/dL (9-16); Calcium 9.1 mg/dL (8.4-10.2); Carbon Dioxide 27 mmol/L (22-29); Chloride 109 mmol/L (96-108); Cholesterol 143 mg/dL (<200); Estimated Glomerular Filt Rate > 60; HDL Cholesterol 64 mg/dL (>40); Potassium 4.2 mmol/L (3.3-5.1); Sodium 143 mmol/L (135-145); Total Protein 6.6 g/dL (6.5-8.0); Triglycerides 50 mg/dL (<150)
[2025-06-23 10:45] LABS: UACC Culture Trigger YES
[2025-06-23 10:58] LABS: Microalbum/Creatinine Ratio Ur 10.9 ug/mg cr (<30)
== END 2025-06-23 09:56 | disposition home or self-care (01) ==
LOC: HO.LNP 09:55
PROVIDERS: Visit Provider Internal Medicine
DX: D72.810 Lymphocytopenia (principal); D72.820 Lymphocytosis (symptomatic); I10 Essential (primary) hypertension; R73.09 Other abnormal glucose; E78.00 Pure hypercholesterolemia, unspecified
CPT/HCPCS: 80053; 80061; 81001; 82043; 82570; 83036; 85025; 87086; 87088; 87186

== ENCOUNTER 2025-07-11 15:15 | Outpatient (REF) | payer MEDICARE, SELFPAY ==
[2025-07-11 15:26] LABS: Appearance Urine Clear; Glucose Urine UA Negative (Negative); PH 6.0 (5.0-9.0); Specific Gravity - Urine >= 1.030 (1.005-1.025); UMIC TRIGGER UACC YES
[2025-07-11 15:32] LABS: UACC Culture Trigger YES
--- OUTSIDE RECORDS SUMMARY | 2025-07-11 16:08 | XMS_ITS | Clinical Summary ---
Author Organization [facility] Address [address] [place] [address] Care Team Providers Care Horticultural Farmer Name Role Phone Unavailable Primary Care Provider [...]
== END 2025-07-11 15:16 | disposition home or self-care (01) ==
LOC: HO.LNP 15:15
PROVIDERS: Visit Provider Internal Medicine
DX: Z13.89 Encounter for screening for other disorder (principal); Z51.89 Encounter for other specified aftercare
CPT/HCPCS: 81001; 87086